=== PATIENT | male | born 1975 | race Caucasian/White ===

== ENCOUNTER 2025-04-07 14:21 | Outpatient (CLI) | payer BC ==
[2025-04-07 15:05] LABS: #Basophils 0.04 10x3/uL (0.0-0.2); #Eosinophils 0.05 10x3/uL (0.0-0.5); #Monocytes 0.27 10x3/uL (0.0-1.1); #Neutrophils 2.03 10x3/uL (1.5-8.4); %Basophils 1.0 % (0.0-2.0); %Eosinophils 1.3 % (0.0-6.0); %Lymphocytes 39.4 % (18.0-47.0); %Monocytes 6.8 % (0.0-10.0); %Neutrophils 51.2 % (40.0-75.0); Hematocrit 34.6 % (38.8-50.0); Hemoglobin 11.8 g/dL (13.5-17.5); Mean Corpuscular Hemoglobin 31.2 pg (27.0-33.0); Mean Corpuscular Volume 91.5 fL (81.2-95.1); Platelet Count 305 10x3/uL (150-450); Red Blood Cell (RBC) Count 3.78 10x6/uL (4.32-5.72); White Blood Cell (WBC) Count 3.96 10x3/uL (3.5-10.5)
[2025-04-07 15:42] LABS: Anion Gap 15 mmol/L (10-20); BUN (Urea Nitrogen) 9 mg/dL (8.9-20.6); Calc. Creatinine Clearance 0 mL/min (70-130); Calcium 9.2 mg/dL (7.8-10.44); Carbon Dioxide 22 mmol/L (22-29); Chloride 106 mmol/L (98-107); Glucose 112 mg/dL (70-105); Potassium 4.1 mmol/L (3.5-5.1); Sodium 139 mmol/L (136-145)
== END 2025-04-07 14:22 | disposition home or self-care (01) ==
LOC: CSHLAB 14:21
PROVIDERS: ATTEND Specialist
DX: Z01.812 Encounter for preprocedural laboratory examination (principal); K40.90 Unilateral inguinal hernia, without obstruction or gangrene, not specified as recurrent
CPT/HCPCS: 80048; 85025

== ENCOUNTER 2025-04-12 06:43 | Day surgery (SDC) | payer BC ==
[2025-04-12] MEDS ORDERED: Ketorolac Tromethamine 30 MG (1 mL) VIAL ONE (07:24)
[2025-04-12] MEDS ORDERED: Acetaminophen 500 MG TAB ONE (07:25)
[2025-04-12] MEDS ORDERED: Lidocaine 1% PF 5 ML VIAL ONE (08:10)
[2025-04-12] MEDS ORDERED: PROPOFOL 20 ML ONE (08:10)
[2025-04-12] MEDS ORDERED: Rocuronium Bromide 10 MG/ML (10ML VIAL) ONE (08:10)
[2025-04-12] MEDS ORDERED: CEFAZOLIN 2 GM VIAL ONE (08:14)
[2025-04-12] MEDS ORDERED: Bupivacaine/Epinephrine 0.25% 30 ML VIAL ONE (08:14)
[2025-04-12] MEDS ORDERED: Ondansetron PF 4 MG/2 ML Vial ONE (10:12)
[2025-04-12] MEDS ORDERED: SUGAMMADEX SODIUM 200 MG/2 ML VIAL ONE (10:12)
[2025-04-12] MEDS ORDERED: oxyCODONE 5 MG TAB ONE (11:49)
== END 2025-04-12 12:35 | disposition home or self-care (01) ==
LOC: CSHSDC 06:43
PROVIDERS: ATTEND Specialist
PROC: 0YUA4JZ Supplement Bilateral Inguinal Region with Synthetic Substitute, Percutaneous Endoscopic Approach (ICD-10-PCS; principal; 2025-04-12)
DX: K40.20 Bilateral inguinal hernia, without obstruction or gangrene, not specified as recurrent (principal); Z88.8 Allergy status to other drugs, medicaments and biological substances
CPT/HCPCS: C1781; J1100; J1885; J2405; J2704; J3010; S2900